=== PATIENT | male | born 1940 | race Caucasian/White ===

== ENCOUNTER 2017-08-04 08:49 | Day surgery (SDC) | payer OTHER ==
[~2017-08-04] VITALS: Ht 177.8 cm; Wt 92.8 kg
[~2017-08-04 08:49] MED LIST: ERYT.5TO LEFTEYE; GLIM2 PO; LISI5 PO; METF500 PO; METO25ER PO; OXYACE5T PO; SIMV10 PO
[2017-08-04] MEDS ORDERED: Aspirin EC81 MG PO (09:24)
[2017-08-04] MEDS ORDERED: CHOL10002 PO (09:25)
[2017-08-04] MEDS ORDERED: Hair, Skin & N1 EACH PO (09:26)
[2017-08-04] MEDS ORDERED: TART CHERRY E1000 MG PO (09:26)
[2017-08-04] MEDS ORDERED: Super B Comple150 MG PO (09:26)
== END 2017-08-04 11:32 | disposition home or self-care (01) ==
LOC: ORSCSDS 08:49
PROVIDERS: Internal Medicine Gastroenterology
PROC: 0DJD8ZZ Inspection of Lower Intestinal Tract, Via Natural or Artificial Opening Endoscopic (ICD-10-PCS; principal; 2017-08-04 10:45)
DX: Z12.11 Encounter for screening for malignant neoplasm of colon (principal); K64.8 Other hemorrhoids; K57.30 Diverticulosis of large intestine without perforation or abscess without bleeding; Z86.010 Personal history of colon polyps; E11.9 Type 2 diabetes mellitus without complications; I10 Essential (primary) hypertension; E78.5 Hyperlipidemia, unspecified; I25.10 Atherosclerotic heart disease of native coronary artery without angina pectoris; Z95.1 Presence of aortocoronary bypass graft; D66 Hereditary factor VIII deficiency; Z79.82 Long term (current) use of aspirin; Z79.84 Long term (current) use of oral hypoglycemic drugs; Z79.899 Other long term (current) drug therapy
CPT/HCPCS: 82947; J2597; J7120

== ENCOUNTER 2020-08-05 01:47 | Inpatient (IN) | payer OTHER ==
[~2020-08-05] VITALS: Ht 180.3 cm; Wt 89.3 kg
[~2020-08-05 01:47] MED LIST changes: +Aspirin EC81 MG PO; +CHOL10002 PO; +Hair, Skin & N1 EACH PO; +Super B Comple150 MG PO; +TART CHERRY E1000 MG PO
[2020-08-05 03:29] LABS: BASOPHILS ABSOLUTE AUTO 0.03 K/mm3 (0.00-0.23); BASOPHILS PERCENT AUTO 0 % (0-2); EOSINOPHILS PERCENT AUTO 0 % (0-6); Hematocrit 45.7 % (37.0-53.0); Hemoglobin 15.4 g/dL (13.5-17.5); IMMATURE GRAN ABSOLUTE AUTO 0.08 K/mm3 (0.00-0.10); IMMATURE GRAN PERCENT AUTO 0 % (0-1); LYMPHOCYTES ABSOLUTE AUTO 1.52 K/mm3 (0.84-5.20); LYMPHOCYTES PERCENT AUTO 8 % (21-46); MONOCYTES ABSOLUTE AUTO 0.86 K/mm3 (0.16-1.47); MONOCYTES PERCENT AUTO 5 % (4-13); Mean Corpuscular HGB 32.8 pg (26.0-34.0); Mean Corpuscular HGB Conc 33.7 g/dL (31.5-36.5); Mean Corpuscular Volume 97 fL (80-100); Mean Platelet Volume 11.7 fL (9.1-12.4); NEUTROPHILS PERCENT AUTO 87 % (41-73); Platelet Count 227 K/mm3 (150-400); RDW Coefficient Variation 13.5 % (11.7-14.2); RDW Standard Deviation 48.8 fL (35.1-46.3); White Blood Cell Count 19.09 K/mm3 (4.00-11.30)
[2020-08-05 03:55] LABS: Alanine Aminotransfer (ALT/SGP 32 U/L (12-78); Albumin, Blood 4.1 g/dL (3.4-5.0); Alk Phos 69 U/L (50-136); Anion Gap 8 mmol/L (6-16); Aspartate Aminotrans (AST/SGOT 26 U/L (12-37); Bilirubin, Total 0.9 mg/dL (0.1-1.0); Blood Urea Nitrogen 25 mg/dL (8-24); Bun/Creatinine Ratio 27.4 (12.0-20.0); CO2, Blood 27 mmol/L (21-32); Calcium, Blood 10.5 mg/dL (8.5-10.1); Chloride, Blood 101 mmol/L (98-108); Creatinine, Blood 0.91 mg/dL (0.60-1.20); Globulin, Blood 4.3 g/dL (2.2-4.0); Glomerular Filtration Rate >60 (60-); Glucose, Blood 276 mg/dL (70-99); Potassium, Blood 3.8 mmol/L (3.5-5.5); Sodium, Blood 136 mmol/L (136-145); Total Protein, Blood 8.4 g/dL (6.4-8.2)
--- NOTE | 2020-08-05 10:59 | NUR ---
PT ARRIVED AT 1030 FROM ER. TRANSFERED SELF FROM WHEELCHAIR WITH NO WEAKNESS NOTED. NG TUBE PRESENT ON ARRIVAL FROM ER, CONNECTED TO LOW INTERMITTENT SUCTION, PT REPORTS RELIEF OF NAUSEA. IMMEDIATE 150ML BROWN LIQUID OUT UPON CONNECTION. PT DENIES BOWEL MOVEMENT FOR 3 DAYS AND DENIES FLATUS. BOWEL TONES HYPOACTIVE. TENDER IN EPIGASTRIC AREA ON PT PALPATION, BUT REPORTS MINIMAL PAIN OVERALL. PT EDUCATED BROKERAGE COORDINATOR LIGHT AND ITS USE, CURRENTLY SITTING UP IN BED. DENIES FURTHER NEEDS.
--- NOTE | 2020-08-05 17:29 | NUR ---
SHIFT SUMMARY NO ACUTE CHANGES SINCE ARRIVAL TO FLOOR. NG TUBE PATENT AND DRAINING DURING SHIFT. APPROX 800ML BROWN LIQUID OUT. PT REPORTS NAUSEA AND PAIN RESOLVED ONCE NG TUBE CONNECTED TO SUCTION. HE HAS BEEN RESTING IN BED AND RECENTLY UP TO A RECLINER, HE STATES FEELING MUCH BETTER IN THE RECLINER. PLAN IS TO CONTINUE NPO STATUS AND NGT AWAITING PASSING OF OBSTRUCTION. PT DENIES FLATUS OR BM.
[2020-08-06 04:48] LABS: BASOPHILS ABSOLUTE AUTO 0.04 K/mm3 (0.00-0.23); BASOPHILS PERCENT AUTO 0 % (0-2); EOSINOPHILS ABSOLUTE AUTO 0.19 K/mm3 (0.00-0.68); EOSINOPHILS PERCENT AUTO 1 % (0-6); Hematocrit 42.9 % (37.0-53.0); Hemoglobin 14.1 g/dL (13.5-17.5); IMMATURE GRAN ABSOLUTE AUTO 0.07 K/mm3 (0.00-0.10); IMMATURE GRAN PERCENT AUTO 0 % (0-1); LYMPHOCYTES ABSOLUTE AUTO 2.88 K/mm3 (0.84-5.20); LYMPHOCYTES PERCENT AUTO 18 % (21-46); MONOCYTES ABSOLUTE AUTO 1.64 K/mm3 (0.16-1.47); MONOCYTES PERCENT AUTO 10 % (4-13); Mean Corpuscular HGB 32.6 pg (26.0-34.0); Mean Corpuscular HGB Conc 32.9 g/dL (31.5-36.5); Mean Corpuscular Volume 99 fL (80-100); Mean Platelet Volume 11.6 fL (9.1-12.4); NEUTROPHILS ABSOLUTE AUTO 11.51 K/mm3 (1.96-9.15); NEUTROPHILS PERCENT AUTO 71 % (41-73); Platelet Count 216 K/mm3 (150-400); RDW Coefficient Variation 13.6 % (11.7-14.2); RDW Standard Deviation 49.8 fL (35.1-46.3); Red Blood Cell Count 4.33 M/mm3 (4.30-5.90); White Blood Cell Count 16.33 K/mm3 (4.00-11.30)
[2020-08-06 05:06] LABS: Anion Gap 4 mmol/L (6-16); Blood Urea Nitrogen 22 mg/dL (8-24); Bun/Creatinine Ratio 22.3 (12.0-20.0); CO2, Blood 29 mmol/L (21-32); Calcium, Blood 9.1 mg/dL (8.5-10.1); Chloride, Blood 108 mmol/L (98-108); Creatinine, Blood 0.99 mg/dL (0.60-1.20); Glomerular Filtration Rate >60 (60-); Glucose, Blood 170 mg/dL (70-99); Magnesium, Blood 1.8 mg/dL (1.6-2.4); Potassium, Blood 3.6 mmol/L (3.5-5.5); Sodium, Blood 141 mmol/L (136-145)
--- NOTE | 2020-08-06 06:20 | NUR ---
A/OX4. VSS ON RA. SINUS DERRELL ON TELE, HR 55-58. IV METOPROLOL HELD D/T LOW HR. PT DENIES SOB AND CHEST PAIN. NO N/V. PT AMBULATED IN HALLWAY MULTIPLE TIMES. SLEEPING B/W CARE. USING CALL LIGHT TO MAKE NEEDS KNOWN.
--- NOTE | 2020-08-06 15:58 | NUR ---
PT TAKING FREQUENT WALKS WHILE NGT CLAMPED. PT REPORTS NO N/V AFTER CLEAR LIQ LUNCH. REPORTS PASSING GAS AND SMALL BM AT THIS TIME. DR. LEDESMA MADE AWARE OF THIS, SEE NEW ORDERS. PLAN TO DC NGT. WILL CTM.
--- NOTE | 2020-08-06 18:34 | NUR ---
SUMMARY: PT HAS DONE WELL TODAY, VSS, A/O. FREQUENT WALKS TODAY. PT REPORTS PASSING GAS AND X3 SMALL BMS. NGT DC'D AT 1800 PER PT REQUEST AND PT TOLERATED FULL LIQUID DIET FOR DINNER. DENIES PAIN, TELE STABLE, SALINE LOCKED PER ORDER. WILL REPORT TO MARIE SHANE.
--- NOTE | 2020-08-07 04:32 | NUR ---
SHIFT SUMMARY PT RESTED WELL T/O NIGHT. DENIES ABD PAIN. REPORTS PASSING FLATUS AND HAVING BMS T/O NIGHT. AMBULATES HALLWAY INDEPENDENTLY AND FREQUENTLY. FERNANDO FULL LIQ DIET AND ADVANCING TO REGULAR DIET FOR BREAKFAST TODAY. PT ANTICIPATING TO DISCHARGE HOME TODAY.
[2020-08-07 04:55] LABS: Hematocrit 38.6 % (37.0-53.0); Hemoglobin 12.8 g/dL (13.5-17.5); Mean Corpuscular HGB 33.1 pg (26.0-34.0); Mean Corpuscular HGB Conc 33.2 g/dL (31.5-36.5); Mean Corpuscular Volume 100 fL (80-100); Mean Platelet Volume 11.4 fL (9.1-12.4); Platelet Count 193 K/mm3 (150-400); RDW Coefficient Variation 13.2 % (11.7-14.2); RDW Standard Deviation 48.2 fL (35.1-46.3); Red Blood Cell Count 3.87 M/mm3 (4.30-5.90); White Blood Cell Count 12.93 K/mm3 (4.00-11.30)
[2020-08-07 05:19] LABS: Anion Gap 4 mmol/L (6-16); Blood Urea Nitrogen 18 mg/dL (8-24); Bun/Creatinine Ratio 22.3 (12.0-20.0); CO2, Blood 29 mmol/L (21-32); Calcium, Blood 8.4 mg/dL (8.5-10.1); Chloride, Blood 106 mmol/L (98-108); Creatinine, Blood 0.81 mg/dL (0.60-1.20); Glomerular Filtration Rate >60 (60-); Glucose, Blood 128 mg/dL (70-99); Phosphorus, Blood 2.6 mg/dL (2.5-4.9); Potassium, Blood 3.4 mmol/L (3.5-5.5); Sodium, Blood 139 mmol/L (136-145)
[2020-08-07] MEDS ORDERED: Vitamin B-121000 MCG PO (10:57)
--- NOTE | 2020-08-07 12:01 | NUR ---
DISCHARGE SUMMARY PT A/O X4; PLEASANT AND COOPERATIVE WITH CARE. PT REPORTS FEELING MUCH BETTER TODAY AND REPORTS NO ABD PAIN OR ANY DISCOMFORT. EDUCATED ON DISCHARGE INSTRUCTIONS AND COVERED WITH INSULIN BEFORE LEAVING. EATING SOME LUNCH BEFORE HE LEAVES. VSS. DISCHARGED HOME WITH .
== END 2020-08-07 12:12 | disposition home or self-care (01) | DRG 388 ==
LOC: ER 01:47 → SURS 09:25
PROVIDERS: Emergency Medicine; ADMIT Internal Medicine
PROC: 0D9670Z Drainage of Stomach with Drainage Device, Via Natural or Artificial Opening (ICD-10-PCS; principal; 2020-08-05)
DX: K91.30 Postprocedural intestinal obstruction, unspecified as to partial versus complete (principal); D66 Hereditary factor VIII deficiency; D68.311 Acquired hemophilia; E86.0 Dehydration; D72.829 Elevated white blood cell count, unspecified; E11.9 Type 2 diabetes mellitus without complications; I25.10 Atherosclerotic heart disease of native coronary artery without angina pectoris; F32.9 Major depressive disorder, single episode, unspecified; I10 Essential (primary) hypertension; E78.5 Hyperlipidemia, unspecified; Z79.84 Long term (current) use of oral hypoglycemic drugs; Z79.82 Long term (current) use of aspirin; Z79.899 Other long term (current) drug therapy; Z95.1 Presence of aortocoronary bypass graft; Z90.81 Acquired absence of spleen; Z98.890 Other specified postprocedural states
CPT/HCPCS: 36415; 74177; 80048; 80053; 80069; 82947; 83690; 83735; 85025; 85027; 96361; 96374; 96375; 99285-25; A9270; J0780; J2543; J7030; J7042; Q9967

== ENCOUNTER 2020-08-12 08:27 | Emergency (ER) | payer OTHER ==
[~2020-08-12] VITALS: Ht 154.9 cm; Wt 93.4 kg
[~2020-08-12 08:27] MED LIST changes: +Vitamin B-121000 MCG PO
[2020-08-12 09:58] LABS: Alanine Aminotransfer (ALT/SGP 24 U/L (12-78); Albumin, Blood 3.2 g/dL (3.4-5.0); Albumin/Globulin Ratio 0.8 (0.8-1.8); Alk Phos 68 U/L (50-136); Anion Gap 8 mmol/L (6-16); Aspartate Aminotrans (AST/SGOT 13 U/L (12-37); Bilirubin, Total 0.8 mg/dL (0.1-1.0); Blood Urea Nitrogen 17 mg/dL (8-24); Bun/Creatinine Ratio 21.1 (12.0-20.0); CO2, Blood 24 mmol/L (21-32); Calcium, Blood 8.8 mg/dL (8.5-10.1); Chloride, Blood 106 mmol/L (98-108); Creatinine, Blood 0.81 mg/dL (0.60-1.20); Globulin, Blood 3.8 g/dL (2.2-4.0); Glomerular Filtration Rate >60 (60-); Glucose, Blood 158 mg/dL (70-99); Potassium, Blood 3.8 mmol/L (3.5-5.5); Sodium, Blood 138 mmol/L (136-145)
[2020-08-12 10:01] LABS: BASOPHILS ABSOLUTE AUTO 0.07 K/mm3 (0.00-0.23); BASOPHILS PERCENT AUTO 1 % (0-2); EOSINOPHILS ABSOLUTE AUTO 0.18 K/mm3 (0.00-0.68); EOSINOPHILS PERCENT AUTO 1 % (0-6); Hematocrit 37.8 % (37.0-53.0); Hemoglobin 12.4 g/dL (13.5-17.5); IMMATURE GRAN ABSOLUTE AUTO 0.09 K/mm3 (0.00-0.10); IMMATURE GRAN PERCENT AUTO 1 % (0-1); LYMPHOCYTES ABSOLUTE AUTO 2.44 K/mm3 (0.84-5.20); LYMPHOCYTES PERCENT AUTO 18 % (21-46); MONOCYTES ABSOLUTE AUTO 1.58 K/mm3 (0.16-1.47); MONOCYTES PERCENT AUTO 12 % (4-13); Mean Corpuscular HGB 32.5 pg (26.0-34.0); Mean Corpuscular HGB Conc 32.8 g/dL (31.5-36.5); Mean Corpuscular Volume 99 fL (80-100); Mean Platelet Volume 12.3 fL (9.1-12.4); NEUTROPHILS ABSOLUTE AUTO 9.36 K/mm3 (1.96-9.15); NEUTROPHILS PERCENT AUTO 68 % (41-73); Platelet Count 225 K/mm3 (150-400); RDW Coefficient Variation 13.1 % (11.7-14.2); RDW Standard Deviation 47.3 fL (35.1-46.3); Red Blood Cell Count 3.81 M/mm3 (4.30-5.90); White Blood Cell Count 13.72 K/mm3 (4.00-11.30)
== END 2020-08-12 12:00 | disposition home or self-care (01) ==
LOC: ER 08:27
PROVIDERS: Physician Assistant
DX: D66 Hereditary factor VIII deficiency (principal); I10 Essential (primary) hypertension; E11.9 Type 2 diabetes mellitus without complications; E78.5 Hyperlipidemia, unspecified; I25.810 Atherosclerosis of coronary artery bypass graft(s) without angina pectoris; Z79.84 Long term (current) use of oral hypoglycemic drugs; Z79.82 Long term (current) use of aspirin; Z79.899 Other long term (current) drug therapy; Z95.1 Presence of aortocoronary bypass graft
CPT/HCPCS: 30903; 36415; 80053; 85025; 96365-59; 96375-59; 99283-25; A9270; J2405; J2597

== ENCOUNTER 2020-08-15 14:50 | Emergency (ER) | payer OTHER ==
[~2020-08-15] VITALS: Ht 177.8 cm; Wt 90.3 kg
== END 2020-08-15 16:00 | disposition home or self-care (01) ==
LOC: ER 14:50
DX: Z48.00 Encounter for change or removal of nonsurgical wound dressing (principal); E11.9 Type 2 diabetes mellitus without complications; I10 Essential (primary) hypertension; I25.810 Atherosclerosis of coronary artery bypass graft(s) without angina pectoris; E78.5 Hyperlipidemia, unspecified; Z79.84 Long term (current) use of oral hypoglycemic drugs; Z79.899 Other long term (current) drug therapy; Z79.82 Long term (current) use of aspirin; Z95.1 Presence of aortocoronary bypass graft
CPT/HCPCS: 99281

== ENCOUNTER 2021-03-01 22:53 | Emergency (ER) | payer OTHER ==
[~2021-03-01] VITALS: Ht 177.8 cm; Wt 95.2 kg
[2021-03-01 23:33] LABS: BASOPHILS ABSOLUTE AUTO 0.04 K/mm3 (0.00-0.23); BASOPHILS PERCENT AUTO 0 % (0-2); EOSINOPHILS ABSOLUTE AUTO 0.04 K/mm3 (0.00-0.68); EOSINOPHILS PERCENT AUTO 0 % (0-6); Hematocrit 41.3 % (37.0-53.0); IMMATURE GRAN ABSOLUTE AUTO 0.04 K/mm3 (0.00-0.10); IMMATURE GRAN PERCENT AUTO 0 % (0-1); LYMPHOCYTES ABSOLUTE AUTO 1.66 K/mm3 (0.84-5.20); LYMPHOCYTES PERCENT AUTO 17 % (21-46); MONOCYTES ABSOLUTE AUTO 0.75 K/mm3 (0.16-1.47); MONOCYTES PERCENT AUTO 8 % (4-13); Mean Corpuscular HGB 32.5 pg (26.0-34.0); Mean Corpuscular HGB Conc 33.9 g/dL (31.5-36.5); Mean Corpuscular Volume 96 fL (80-100); Mean Platelet Volume 10.9 fL (9.1-12.4); NEUTROPHILS ABSOLUTE AUTO 7.39 K/mm3 (1.96-9.15); NEUTROPHILS PERCENT AUTO 75 % (41-73); Platelet Count 257 K/mm3 (150-400); RDW Standard Deviation 46.5 fL (35.1-46.3); Red Blood Cell Count 4.31 M/mm3 (4.30-5.90); White Blood Cell Count 9.92 K/mm3 (4.00-11.30)
[2021-03-01 23:50] LABS: Alanine Aminotransfer (ALT/SGP 30 U/L (12-78); Albumin, Blood 3.9 g/dL (3.4-5.0); Alk Phos 107 U/L (50-136); Anion Gap 12 mmol/L (6-16); Aspartate Aminotrans (AST/SGOT 22 U/L (12-37); Bilirubin, Total 0.7 mg/dL (0.1-1.0); Blood Urea Nitrogen 15 mg/dL (8-24); Bun/Creatinine Ratio 17.1 (12.0-20.0); CO2, Blood 25 mmol/L (21-32); Calcium, Blood 9.3 mg/dL (8.5-10.1); Chloride, Blood 103 mmol/L (98-108); Creatinine, Blood 0.88 mg/dL (0.60-1.20); Glomerular Filtration Rate >60 (60-); Glucose, Blood 180 mg/dL (70-99); Potassium, Blood 3.4 mmol/L (3.5-5.5); Sodium, Blood 140 mmol/L (136-145); Total Protein, Blood 7.9 g/dL (6.4-8.2)
[2021-03-02 05:17] LABS: Troponin I <0.015 ng/mL (0.000-0.040)
[2021-03-02] MEDS ORDERED: MECL25 PO (05:22)
== END 2021-03-02 06:16 | disposition home or self-care (01) ==
LOC: ER 22:53
PROVIDERS: Student in an Organized Health Care Education/Training Program
DX: R42 Dizziness and giddiness (principal); E11.9 Type 2 diabetes mellitus without complications; I10 Essential (primary) hypertension; E78.5 Hyperlipidemia, unspecified; Z79.899 Other long term (current) drug therapy
CPT/HCPCS: 36415; 70450; 80053; 84484; 85025; 93005; 93010; 99284-25; A9270; J2765

== ENCOUNTER 2022-02-05 22:58 | Emergency (ER) | payer OTHER ==
[~2022-02-05] VITALS: Ht 180.3 cm; Wt 93.4 kg
[~2022-02-05 22:58] MED LIST changes: +MECL25 PO
[2022-02-05 23:53] LABS: Albumin, Blood 3.5 g/dL (3.4-5.0); Bilirubin, Total 0.5 mg/dL (0.1-1.0); Bun/Creatinine Ratio 19.1 (12.0-20.0); Calcium, Blood 8.7 mg/dL (8.5-10.1); Creatinine, Blood 1.1 mg/dL (0.60-1.20); Globulin, Blood 3.6 g/dL (2.2-4.0); Potassium, Blood 3.6 mmol/L (3.5-5.5); Total Protein, Blood 7.1 g/dL (6.4-8.2)
[2022-02-06 00:56] LABS: BASOPHILS ABSOLUTE AUTO 0.06 K/mm3 (0.00-0.23); BASOPHILS PERCENT AUTO 1 % (0-2); EOSINOPHILS ABSOLUTE AUTO 0.34 K/mm3 (0.00-0.68); EOSINOPHILS PERCENT AUTO 4 % (0-6); Hematocrit 35.1 % (37.0-53.0); Hemoglobin 12.2 g/dL (13.5-17.5); IMMATURE GRAN ABSOLUTE AUTO 0.03 K/mm3 (0.00-0.10); IMMATURE GRAN PERCENT AUTO 0 % (0-1); LYMPHOCYTES ABSOLUTE AUTO 1.04 K/mm3 (0.84-5.20); LYMPHOCYTES PERCENT AUTO 14 % (21-46); MONOCYTES PERCENT AUTO 16 % (4-13); Mean Corpuscular HGB 33.6 pg (26.0-34.0); Mean Corpuscular HGB Conc 34.8 g/dL (31.5-36.5); Mean Corpuscular Volume 97 fL (80-100); Mean Platelet Volume 10.9 fL (9.1-12.4); NEUTROPHILS ABSOLUTE AUTO 5.02 K/mm3 (1.96-9.15); NEUTROPHILS PERCENT AUTO 65 % (41-73); Platelet Count 174 K/mm3 (150-400); Red Blood Cell Count 3.63 M/mm3 (4.30-5.90); White Blood Cell Count 7.69 K/mm3 (4.00-11.30)
[2022-02-06 01:39] LABS: Influenza B, PCR NEGATIVE (NEGATIVE); Resp Syncytial Virus, PCR NEGATIVE (NEGATIVE); SARS-Cov-2 (COVID-19) PCR, MMC NEGATIVE (NEGATIVE)
[2022-02-06 01:43] LABS: Influenza A, PCR POSITIVE (NEGATIVE)
[2022-02-06] MEDS ORDERED: OSEL75CA PO (01:50)
[2022-02-06 03:31] LABS: Source, Urine Clean Catch
[2022-02-06 03:36] LABS: Appearance, Urine Clear (Clear); Bilirubin, Urine Neg (Neg); Blood, Urine Neg (Neg); Color, Urine Yellow (P-Yellow); Glucose Qualitative, Urine Neg (Neg); Ketones, Urine 1+ (Neg); Leukocyte Esterase, Urine Neg (Neg); Nitrite, Urine Neg (Neg); Protein, Urine Neg (Neg); Specific Gravity, Urine 1.015 (1.003-1.022); Urobilinogen, Urine NORM (Normal)
== END 2022-02-06 04:37 | disposition home or self-care (01) ==
LOC: ER 22:58
PROVIDERS: Emergency Medicine
DX: J10.1 Influenza due to other identified influenza virus with other respiratory manifestations (principal); E11.9 Type 2 diabetes mellitus without complications; I10 Essential (primary) hypertension; I25.10 Atherosclerotic heart disease of native coronary artery without angina pectoris; E78.5 Hyperlipidemia, unspecified; Z20.822 Contact with and (suspected) exposure to COVID-19; Z79.899 Other long term (current) drug therapy; Z79.84 Long term (current) use of oral hypoglycemic drugs; Z79.82 Long term (current) use of aspirin
CPT/HCPCS: 0241U; 36415; 71045; 80053; 81003; 83605; 85025; 93005; 93010; 99284-25; A9270; J7030

== ENCOUNTER → 2022-07-03 | Outpatient (CLI) | payer OTHER ==
[~2022-07-03] MED LIST changes: +OSEL75CA PO
== END | disposition home or self-care (01) ==
LOC: LAB 07:05 → LAB SHORT 07:05
DX: E11.9 Type 2 diabetes mellitus without complications (principal)
CPT/HCPCS: 82043

== ENCOUNTER 2024-09-15 15:34 | Emergency (ER) | payer OTHER ==
[~2024-09-15] VITALS: Ht 177.8 cm; Wt 92.5 kg
[2024-09-15 15:37] VITALS: BP 151/76
== END 2024-09-15 15:53 | disposition home or self-care (01) ==
LOC: ER 15:34
DX: S91.312A Laceration without foreign body, left foot, initial encounter (principal); Z23 Encounter for immunization; I10 Essential (primary) hypertension; E11.9 Type 2 diabetes mellitus without complications; W26.8XXA Contact with other sharp object(s), not elsewhere classified, initial encounter; Z59.89 Other problems related to housing and economic circumstances; Z79.84 Long term (current) use of oral hypoglycemic drugs; Z79.82 Long term (current) use of aspirin; Z79.899 Other long term (current) drug therapy
CPT/HCPCS: 12001; 90471; 90715; 99283-25